=== PATIENT | male | born 1990 ===

== ENCOUNTER 2024-08-16 15:56 | Emergency (ER) | payer BC ==
[2024-08-16] MEDS: Acetaminophen 500 MG Tab PO ONE (18:49)
[2024-08-16] MEDS: Sodium Chloride 0.9% 1,000 ML IV ONE ×2 (18:49→20:23)
[2024-08-16] MEDS: Ketorolac 30 MG/ML SDV IVPUSH ONE (18:49)
[2024-08-16] MEDS: Albuterol 8 GM Inhaler INH ONE (18:50)
[2024-08-16] MEDS: Ibuprofen 600 MG Tab PO ONE (18:51)
[2024-08-16 19:13] LABS: BASOPHILS ABSOLUTE AUTO 0.02 K/uL (0.00-0.20); BASOPHILS PERCENT AUTO 0.2 % (0.0-1.0); HEMOGLOBIN 15.8 g/dL (14.0-18.0); IMMATURE GRAN ABSOLUTE AUTO 0.05 K/uL (0.00-0.05); IMMATURE GRAN PERCENT AUTO 0.6 % (0.0-0.4); LYMPHOCYTES ABSOLUTE AUTO 0.55 K/uL (1.00-4.80); LYMPHOCYTES PERCENT AUTO 6.2 % (24.0-44.0); MEAN CORPUSCULAR HEMOGLOBIN 27.4 pg (28.0-32.0); MEAN CORPUSCULAR HGB CONC 32.9 g/dL (32.0-36.0); MEAN CORPUSCULAR VOLUME 83.2 fL (83.0-99.0); MEAN PLATELET VOLUME 10.1 fL (9.4-12.4); MONOCYTES PERCENT AUTO 7.9 % (0.0-8.0); NEUTROPHILS ABSOLUTE AUTO 7.59 K/uL (1.80-7.70); NEUTROPHILS PERCENT AUTO 85.1 % (41.0-71.0); PLATELET COUNT,PLT 199 K/uL (150-400); RED BLOOD CELL COUNT 5.77 M/uL (4.52-5.90); WHITE BLOOD CELL COUNT,WBC 8.91 K/uL (3.9-11.3)
[2024-08-16 19:42] LABS: ALBUMIN 3.7 g/dL (3.4-5.0); BILIRUBIN TOTAL 0.4 mg/dL (0.2-1.0); CALCIUM 9.1 mg/dL (8.5-10.1); CARBON DIOXIDE,CO2 24.5 mmol/L (21.0-32.0); CREATININE 1.3 mg/dL (0.8-1.3); EST CRCL DRUG DOSING (CG) 89.63 mL/min; PROTEIN TOTAL,TP 7.3 g/dL (6.4-8.2)
[2024-08-16] MEDS: Codeine/guaiFENesin 10-100 MG/5 ML Syrup 5 ML Cup PO ONE (22:03)
[2024-08-16] MEDS: Iopamidol 755 MG/ML 500 ML Multipack Bottle IVPUSH STA (22:26)
== END 2024-08-17 01:21 | disposition home or self-care (01) ==
LOC: MW.ED 15:56
DX: U07.1 COVID-19 (principal); R79.89 Other specified abnormal findings of blood chemistry; Z79.899 Other long term (current) drug therapy; Z75.8 Other problems related to medical facilities and other health care
CPT/HCPCS: 36415; 71045; 71275; 80053; 83880; 84484; 85025; 85379; 87428; 93005; 96361; 96374; 99285; A9270; J1885; J7030; Q9967